=== PATIENT | female | born 1945 | race Caucasian/White ===

== ENCOUNTER 2018-06-27 14:01 | Emergency (ER) | payer OTHER ==
[2018-06-27 14:11] VITALS: BP 108/95; Ht 162.6 cm
== END 2018-06-27 15:39 | disposition home or self-care (01) ==
LOC: ED 14:01
DX: B34.9 Viral infection, unspecified (principal); F32.9 Major depressive disorder, single episode, unspecified
CPT/HCPCS: 87804